=== PATIENT | female | born 1965 | race Caucasian/White ===

== ENCOUNTER 2019-11-27 05:02 | Emergency (ER) | payer MEDICAID, OTHER ==
[~2019-11-27] VITALS: Ht 165.1 cm; Wt 104.5 kg
[2019-11-27 05:13] VITALS: BP 210/101
[2019-11-27] MEDS ORDERED: NO HOME MEDS (05:16)
[2019-11-27] MEDS ORDERED: methylPREDNISolone sod succ 125mg/2ml vial IM ONE (05:30)
[2019-11-27] MEDS ORDERED: PRED20TA PO (05:30)
[2019-11-27] MEDS ORDERED: CEPH500C5 PO (05:32)
== END 2019-11-27 06:03 | disposition home or self-care (01) ==
LOC: ER 05:02
DX: T63.441A Toxic effect of venom of bees, accidental (unintentional), initial encounter (principal); T78.40XA Allergy, unspecified, initial encounter; X58.XXXA Exposure to other specified factors, initial encounter; Y92.89 Other specified places as the place of occurrence of the external cause
CPT/HCPCS: 96372; 99283; J2930

== ENCOUNTER 2023-10-21 04:45 | Emergency (ER) | payer MEDICAID, OTHER ==
[~2023-10-21] VITALS: Ht 165.1 cm; Wt 75.0 kg
[~2023-10-21 04:45] MED LIST: NO HOME MEDS
[2023-10-21] MEDS ORDERED: SILV50CR31 TOP (06:22)
[2023-10-21 06:40] VITALS: BP 186/111; PULSE 83; RESP 18; TEMP 97.8; O2SAT 100
[2023-10-21] MEDS: silver sulfadiazine cream 50gm TP SCH (06:59)
[2023-10-21] MEDS: ketorolac trometh 30MG/ML vial 30 MG/ML VIAL IM ONE (07:00)
== END 2023-10-21 07:28 | disposition home or self-care (01) ==
LOC: ER 04:47
DX: T22.112A Burn of first degree of left forearm, initial encounter (principal); T31.0 Burns involving less than 10% of body surface; X08.8XXA Exposure to other specified smoke, fire and flames, initial encounter; Y93.89 Activity, other specified; Y92.89 Other specified places as the place of occurrence of the external cause; Y99.8 Other external cause status
CPT/HCPCS: 16000; 96372; 99283; J1885; A6253; A6446